=== PATIENT | female | born 1990 | race Native Hawaiian/Other Pacific Islander ===

== ENCOUNTER 2018-02-12 16:17 | Outpatient (CLI) | payer OTHER | END 2018-02-12 23:25 | disposition home or self-care (01) | LOC: RAD 16:17 | DX: M25.561 Pain in right knee (principal) ==

== ENCOUNTER 2022-09-03 21:35 | Emergency (ER) | payer BC ==
[~2022-09-03] VITALS: Ht 172.7 cm; Wt 113.4 kg
[2022-09-03 21:40] VITALS: TEMP 98.2
[2022-09-03 23:30] VITALS: BP 140/82
== END 2022-09-03 23:30 | disposition home or self-care (01) ==
LOC: ED 21:35
PROC: 2W3MX1Z Immobilization of Left Lower Extremity using Splint (ICD-10-PCS; principal; 2022-09-03)
DX: M23.8X2 Other internal derangements of left knee (principal); W11.XXXA Fall on and from ladder, initial encounter; Y92.89 Other specified places as the place of occurrence of the external cause
CPT/HCPCS: 81025; 96372; 99283; J1885